=== PATIENT | female | born 1945 | race Caucasian/White ===

== ENCOUNTER → 2021-04-03 | Outpatient (CLI) | payer MEDICARE, OTHER ==
[~2021-04-03] MED LIST: ARIMIDEX1 MG PO; ASPIR 8181 MG PO; CALCIUM 600 +1 EACH PO; CALCIUM600 MG PO; CATAPRES 0.1MG0.1 MG PO; CELEBREX 200MG200 MG PO; COQ-10100 MG PO; COREG 12.5MG12.5 MG PO; COREG6.25 MG PO; COZAAR50 MG PO; CYCLOBENZAPRINE5 MG PO; CYMBALTA60 MG PO; DULERA 200 MCG8.8 GM INH; FLAX OIL1000 MG PO; GARLIC500 MG PO; HYDROCHLOROTHIA25 MG PO; HYGROTON TAB 2525 MG PO; LEVOTHYROXINE112 MCG PO; LIPITOR TAB 1010 MG PO; LORTAB 5-325 M1 EACH PO; MECLIZINE HCL25 MG PO; NEURONTIN300 MG PO; NORCO 5-325 TA1 EACH PO; OMEPRAZOLE20 MG PO; PANTOPRAZOLE SO40 MG PO; PROTONIX PO; SYNTHROID100 MCG PO; VISION FORMULA1 EAC1 PO; VISION VITAMIN1 EACH PO; VITAMIN B12-FO1 EACH PO; VITAMIN D35000 UNIT PO; XARELTO15 PACK PO; ZOFRAN4 MG PO
== END ==
LOC: KOH-I 15:20
DX: M54.6 Pain in thoracic spine (principal); M47.814 Spondylosis without myelopathy or radiculopathy, thoracic region
CPT/HCPCS: 72070

== ENCOUNTER → 2022-05-04 | Outpatient (CLI) | payer MEDICARE, OTHER | LOC: LAB 11:28 | DX: Z20.822 Contact with and (suspected) exposure to COVID-19 (principal) | CPT/HCPCS: U0003 ==